=== PATIENT | female | born 1960 | race Caucasian/White ===

== ENCOUNTER 2017-11-15 23:54 | Emergency (ER) | payer OTHER ==
[2017-11-16 00:42] LABS: Absolute Lymphocytes (CBC) 3.3 K/uL (0.7-4.9); Absolute Monocytes 0.7 K/uL (0.1-1.3); Absolute Neutrophil 3.3 K/uL (1.8-8.0); Basophils % 0.9 % (0-1.3); Eosinophils % 2.5 % (0-4.4); Hematocrit 38.9 % (36.0-45.0); Lymphocytes % 43.9 % (15.3-44.8); MCH 30.1 pg (27.0-35.0); MCV 88.8 fL (80-100); MPV 8.1 fL (7.6-11.3); Monocytes % 8.8 % (3.3-12.3); RBC Red Blood Cell Count 4.38 M/uL (3.86-4.86)
[2017-11-16 01:28] LABS: CKMB Creatine Kinase MB 1.8 ng/mL (0.3-3.6); Potassium 3.9 mmol/L (3.5-5.1)
--- NOTE | 2017-11-16 02:08 | ER ---
Nurse's Notes [facility] Name: Fabiana Barron Age: 57 yrs Sex: Female : 1960 Arrival Date: 11/15/2017 Time: 23:57 Bed 4 Private MD: Ricarod Diaz Diagnosis: Chest pain, unspecified Presentation: 11/16 00:00 Presenting complaint: Patient states: that at 1700 she started to have chest pain on fc and off lasting sec's at a time. Denies any nausea, vomiting or shortness of breath. Also having left ankle swelling and low back pain. Transition of care: patient was not received from another setting of care. Onset of symptoms was November 15, 2017 at 17:00. Risk Assessment: Do you want to hurt yourself or someone else? Patient reports no desire to harm self or others. Initial Sepsis Screen: Does the patient meet any 2 criteria? No. Patient's initial sepsis screen is negative. Does the patient have a suspected source of infection? No. Patient's initial sepsis screen is negative. Care prior to arrival: None. 00:00 Method Of Arrival: Ambulatory 00:00 Acuity: KE 3 fc Triage Assessment: 00:21 General: Behavior is calm, cooperative. rv Historical: - Allergies: 00:14 Demerol; fc 00:14 PENICILLINS; fc - Home Meds: 00:14 vitamin [Active]; fc - PMHx: 00:14 Diabetes - NIDDM; Hypertension; fc - PSHx: 00:14 Knee surgery; fc - Immunization history:: Last tetanus immunization: up to date. - Social history:: Smoking status: Patient/guardian denies using tobacco. - Ebola Screening: : Patient negative for fever greater than or equal to 101.5 degrees Fahrenheit, and additional compatible Ebola Virus Disease symptoms Patient denies exposure to infectious person Patient denies travel to an Ebola-affected area in the 21 days before illness onset. - Family history:: not pertinent. - Hospitalizations: : No recent hospitalization is reported. Screenin:13 Abuse screen: Denies threats or abuse. Nutritional screening: No deficits noted. fc Tuberculosis screening: No symptoms or risk factors identified. Fall Risk None identified. Assessment: 00:20 General: Appears in no apparent distress. comfortable. Pain: Pain does not radiate. rv Pain began 1700 11/15/17. Neuro: Level of Consciousness is awake, Oriented to person, place, time, situation. Cardiovascular: Heart tones S1 S2 present Capillary refill < 3 seconds Rhythm is regular. Respiratory: Airway is patent. GI: No signs and/or symptoms were reported involving the gastrointestinal system. : No signs and/or symptoms were reported regarding the genitourinary system. EENT: No signs and/or symptoms were reported regarding the EENT system. Derm: Skin is intact. :27 Reassessment: Patient appears in no apparent distress at this time. Patient and/or rv family updated on plan of care and expected duration. Pain level reassessed. Patient is alert, oriented x 3, equal unlabored respirations, skin warm/dry/pink. patient is comfortable. vital signs are stable. :18 Reassessment: PT D/C HOME, DX WITH NONCARDIAC CP. bp Vital Signs: 00:00 BP 151 / 90; Pulse 88; Resp 18; Temp 98.4(O); Pulse Ox 98% on R/A; Weight 115.21 kg fc (R); Height 5 ft. 11 in. (180.34 cm) (R); Pain 5/10; 01:26 BP 127 / 86; Pulse 68; Resp 14; Pulse Ox 97% on R/A; rv 02:18 BP 128 / 88; Pulse 78; Resp 17; Pulse Ox 98% ; bp 00:00 Body Mass Index 35.43 (115.21 kg, 180.34 cm) fc ED Course: 11/15 23:57 Patient arrived in ED. do 23:58 Ricardo Diaz MD is Private Physician. do 11/16 00:00 Arm band placed on Patient placed in an exam room, on a stretcher. fc 00:00 Patient has correct armband on for positive identification. Placed in gown. Bed in low fc position. Call light in reach. mdm sr on. Pulse ox on. Sitter at bedside. 00:03 Toby Hernadez MD is Attending Physician. rn 00:11 Triage completed. fc 00:11 No provider procedures requiring assistance completed. EKG done, by ED staff, reviewed fc by Toby Hernadez MD. 00:21 Patient maintains SpO2 saturation greater than 95% on room air. rv 00:26 Dheeraj Driver, LATRICE is Primary Nurse. bp 00:26 Inserted saline lock: 20 gauge in right forearm, using aseptic technique. Blood bp collected. 00:43 X-ray completed. Portable x-ray completed in exam room. Patient tolerated procedure kw well. 00:45 XRAY Chest (1 view) In Process Unspecified. EDMS 02:07 Ricardo Diaz MD is Referral Physician. rn 02:19 IV discontinued. bp Administered Medications: No medications were administered Outcome: 02:07 Discharge ordered by MD. rn 02:20 Discharged to home ambulatory. bp 02:20 Condition: stable 02:20 Discharge instructions given to patient, Instructed on discharge instructions, follow up and referral plans. Demonstrated understanding of instructions, follow-up care. 02:20 Patient left the ED. bp Signatures: Dispatcher [employer] EDCA Rhoda Campbell, RN RN Toby Pandya MD MD rn Whitley, Kimberlee kw Ogletree, Danielle do Peltier, Brian, RN RN bp Rogelio Seth RN RN rv
--- NOTE | 2017-11-16 02:08 | EDPHYS ---
Physician Documentation [facility] Name: Fabiana Barron Age: 57 yrs Sex: Female : 1960 Arrival Date: 11/15/2017 Time: 23:57 Bed 4 Private MD: Ricardo Diaz ED Physician Toby Hernadez HPI: 11/16 00:43 This 57 yrs old Female presents to ER via Ambulatory with complaints of Chest rn Tightness. 00:43 The patient or guardian reports chest pain that is located primarily in the substernal rn area. Onset: today. The pain does not radiate. The chest pain is described as squeezing. Duration: The patient or guardian reports multiple episodes, that are intermittent, the episodes last approximately 1 minute(s). Severity of pain: At its worst the pain was mild in the emergency department the pain has improved. The patient has not experienced similar symptoms in the past. Reports intermittent chest tightness, began today, not assoc or worse with exertion, lasts less than 1 minute, no radiation, has had normal stress test in past, no fever/cough/sob/abd pain/vomiting/diarrhea.. Historical: - Allergies: 00:14 Demerol; fc 00:14 PENICILLINS; fc - Home Meds: 00:14 vitamin [Active]; fc - PMHx: 00:14 Diabetes - NIDDM; Hypertension; fc - PSHx: 00:14 Knee surgery; fc - Immunization history:: Last tetanus immunization: up to date. - Social history:: Smoking status: Patient/guardian denies using tobacco. - Ebola Screening: : Patient negative for fever greater than or equal to 101.5 degrees Fahrenheit, and additional compatible Ebola Virus Disease symptoms Patient denies exposure to infectious person Patient denies travel to an Ebola-affected area in the 21 days before illness onset. - Family history:: not pertinent. - Hospitalizations: : No recent hospitalization is reported. ROS: 00:43 Constitutional: Negative for fever, chills, and weight loss, Eyes: Negative for injury, rn pain, redness, and discharge, Neck: Negative for injury, pain, and swelling, Cardiovascular: Negative for palpitations, and edema, Respiratory: Negative for shortness of breath, cough, wheezing, and pleuritic chest pain, Abdomen/GI: Negative for abdominal pain, nausea, vomiting, diarrhea, and constipation, MS/Extremity: Negative for injury and deformity, Skin: Negative for injury, rash, and discoloration, Neuro: Negative for headache, weakness, numbness, tingling, and seizure. Exam: 00:43 Constitutional: This is a well developed, well nourished patient who is awake, alert, rn and in no acute distress. Head/Face: Normocephalic, atraumatic. Eyes: Pupils equal round and reactive to light, extra-ocular motions intact. Lids and lashes normal. Conjunctiva and sclera are non-icteric and not injected. Cornea within normal limits. Periorbital areas with no swelling, redness, or edema. Chest/axilla: Normal chest wall appearance and motion. Nontender with no deformity. No lesions are appreciated. Cardiovascular: Regular rate and rhythm with a normal S1 and S2. No gallops, murmurs, or rubs. Normal PMI, no JVD. No pulse deficits. Respiratory: Lungs have equal breath sounds bilaterally, clear to auscultation and percussion. No rales, rhonchi or wheezes noted. No increased work of breathing, no retractions or nasal flaring. Abdomen/GI: Soft, non-tender, with normal bowel sounds. No distension or tympany. No guarding or rebound. No evidence of tenderness throughout. MS/ Extremity: Pulses equal, no cyanosis. Neurovascular intact. Full, normal range of motion. Equal circumference. Neuro: Awake and alert, GCS 15, oriented to person, place, time, and situation. Motor strength 5/5 in all extremities. Sensory grossly intact. Vital Signs: 00:00 BP 151 / 90; Pulse 88; Resp 18; Temp 98.4(O); Pulse Ox 98% on R/A; Weight 115.21 kg fc (R); Height 5 ft. 11 in. (180.34 cm) (R); Pain 5/10; 01:26 BP 127 / 86; Pulse 68; Resp 14; Pulse Ox 97% on R/A; rv 02:18 BP 128 / 88; Pulse 78; Resp 17; Pulse Ox 98% ; bp 00:00 Body Mass Index 35.43 (115.21 kg, 180.34 cm) MDM: 00:03 Patient medically screened. rn 02:05 Differential diagnosis: acute myocardial infarction, acute pericarditis, anxiety, rn coronary artery disease chest wall pain, costochondritis, esophagitis, gastritis, gastroesophageal reflux disease (GERD), pericarditis, pleurisy, pneumothorax. Data reviewed: vital signs, nurses notes, lab test result(s), EKG, radiologic studies, plain films, and as a result, I will discharge patient. Counseling: I had a detailed discussion with the patient and/or guardian regarding: the historical points, exam findings, and any diagnostic results supporting the discharge/admit diagnosis, lab results, radiology results, the need for outpatient follow up, to return to the emergency department if symptoms worsen or persist or if there are any questions or concerns that arise at home. Response to treatment: the patient's symptoms have markedly improved after treatment, and as a result, I will discharge patient. Special discussion: Based on the patient's history, exam, and Dx evaluation, there is no indication for emergent intervention or inpatient Tx. It is understood by the patient/guardian that if the Sx's persist or worsen they need to return immediately for re-evaluation. I discussed with the patient/guardian in detail that at this point there is no indication for admission to the hospital. It is understood, however, that if the symptoms persist or worsen the patient needs to return immediately for re-evaluation. ED course: Spoke with patient, normal w/u, normal ecg, neg trop, offered observation overnight for cardiac w/u and cardiology evaluation, pt chooses to go home, states will call for appt first thing in AM, recommended immediate return if worsens. . 11/16 00:12 Order name: Basic Metabolic Panel; Complete Time: rn 11/16 00:12 Order name: CBC with Diff; Complete Time: rn 11/16 00:12 Order name: Ckmb; Complete Time: rn 11/16 00:12 Order name: CPK; Complete Time: rn 11/16 00:12 Order name: Troponin (emerg Dept Use Only); Complete Time: rn 11/16 00:12 Order name: XRAY Chest (1 view) rn 11/16 00:12 Order name: EKG; Complete Time: 00:13 rn 11/16 00:12 Order name: Cardiac monitoring; Complete Time: 00:14 rn 11/16 00:12 Order name: EKG - Nurse/Tech; Complete Time: 00:14 rn 11/16 00:12 Order name: IV Saline Lock; Complete Time: 00:27 rn 11/16 00:12 Order name: Labs collected and sent; Complete Time: 00: rn 11/16 00:12 Order name: O2 Per Protocol; Complete Time: 00:14 rn 11/16 00:12 Order name: O2 Sat Monitoring; Complete Time: 00:14 rn Administered Medications: No medications were administered Disposition: 11/16/17 02:07 Discharged to Home. Impression: Chest pain, unspecified. - Condition is Stable. - Discharge Instructions: Nonspecific Chest Pain. - Medication Reconciliation Form, Thank You Letter, Antibiotic Education, Prescription Opioid Use form. - Follow up: Ricardo Diaz MD; When: Today; Reason: Recheck today's complaints, Re-evaluation by your physician. - Problem is new. - Symptoms have improved. Signatures: Dispatcher [employer] EDMS Rhoda Campbell RN RN fc Nieto, Roman, MD MD rn Peltier, Brian, RN RN bp Corrections: (The following items were deleted from the chart) 02:20 02:07 11/16/2017 02:07 Discharged to Home. Impression: Chest pain, unspecified. bp Condition is Stable. Forms are Medication Reconciliation Form, Thank You Letter, Antibiotic Education, Prescription Opioid Use. Follow up: Ricardo Diaz; When: Today; Reason: Recheck today's complaints, Re-evaluation by your physician. Problem is new. Symptoms have improved. rn
--- NOTE | 2017-11-16 08:09 | RAD REPORT ---
EXAM DESCRIPTION: RAD - Chest Single View - 11/16/2017 12:45 am CLINICAL HISTORY: CHEST PAIN Chest pain. COMPARISON: CHEST PA AND LAT 2 VIEW dated 06/13/2015; CHEST PA AND LAT 2 VIEW dated 07/04/2007 FINDINGS: Portable technique limits examination quality. The lungs are grossly clear. The heart is normal in size. No displaced fractures. IMPRESSION: No acute intrathoracic process suspected.
--- NOTE | 2017-11-16 15:42 | EKG ---
Test Date: 2017-11-16 Test Time: 00:09:31 Dispute Resolution Analyst: KINA MEASUREMENT RESULTS: Intervals: Rate: 75 RI: 172 QRSD: 90 QT: 396 QTc: 442 Menard: P: 49 RI: 172 QRS: 10 T: 47 INTERPRETIVE STATEMENTS: Normal sinus rhythm Normal ECG No previous ECG available for comparison Electronically Signed On 11-16-17 15:41:06 CDT by Charly Mccormick
== END 2017-11-16 02:20 | disposition home or self-care (01) ==
LOC: ER 23:54
DX: R07.89 Other chest pain (principal); E11.9 Type 2 diabetes mellitus without complications; I10 Essential (primary) hypertension; Z88.6 Allergy status to analgesic agent; Z88.0 Allergy status to penicillin
CPT/HCPCS: 36415; 71045; 80048; 82550; 82553; 84484; 85025; 93005; 99285

== ENCOUNTER 2021-05-13 15:05 | Emergency (ER) | payer OTHER, SELFPAY ==
--- OUTSIDE RECORDS SUMMARY | 2021-05-13 15:07 | XMS REPORT | Continuity of Care Document ---
:1960 Author Organization [facility] t Address [address] [place] [address] Care Team Providers Name Role Phone Emily Primary Care Physician Marquez Alejandre MA Attending Clinician Unavailable Sakina ROBLES Attending Clinician Unavailable Payers Payer Name Policy Type Policy Number Effective Date Expiration Date S ource Problems Condition Condition Condition Status Onset Resolution Last Treating Co mments Source Name Details Category Date Date Treatment Clinician Date Type 2 Type 2 Disease Active 2019-05 Univers diabetes diabetes 2-10 ity of mellitus mellitus 00:00: [place] without without 00 Medical complicati complicati Br anch on, on, without without long-term long-term current current use of use of insulin insulin Family Family Disease Active 2019-05 Univers history of history of 2-10 it y of breast breast 00:00: [place] cancer cancer 00 Medical Branch Allergies, Adverse Reactions, Alerts Allergy Allergy Status Severity Reaction(s) Onset Inactive Treating Comm ents Source Name Type Date Date Clinician Farrukh Estrada Active Other - See 2019-05 S/p U nivers ne Hcl ty to comments 2-10 surgery ity of adverse 00:00: adverse [place] reaction 00 reaction Medica l s Branch Penicill Propensi Active Shortness of 2019-05 Univers ins ty to Breath 2-10 ity of adverse 00:00: [place] reaction 00 Medical s Branch Social History Social Habit Start Date Stop Date Quantity Comments Source History SDCT 2020-05-02 2020-05-02 99 University o f Alcohol Frequency 00:00:00 00:00:00 [place] M edical Branch History SDOH 2020-05-02 2020-05-02 99 University o f Alcohol Std 00:00:00 00:00:00 [place] [facility] History SDOH 2020-05-02 2020-05-02 99 University o f Alcohol Binge 00:00:00 00:00:00 [place] [facility] Tobacco use and 2020-05-02 2020-05-02 Never used Universit y of exposure 00:00:00 00:00:00 [place] [facility] Alcohol intake 2020-05-02 2020-05-02 Current drinker Unive rsity of 00:00:00 00:00:00 of alcohol [place] [facility] (finding) Branch Alcohol Comment 2020-05-02 2020-05-02 Rare Universit y of 00:00:00 00:00:00 [facility] Sex Assigned At [birth year] Universit y of 00:00:00 00:00:00 [facility] Smoking Status Start Date Stop Date Source Never smoker [facility] Branch Medications Ordered Filled Start Stop Current Ordering Indication Dosage Frequency Signature Comments Components Source Medication Medication Date Date Medication? Clinician (SIG) Name Name ascorbic 2019-05 Yes 500mg Take 500 Univ ers acid, 2-10 mg by ity of vitamin C, 10:16: mouth. [place] (VITAMIN C) 24 Medical 500 mg Branch tablet Cholecalcif 2019-05 Yes Take by Un layla pooja, 2-10 mouth. ity of Vitamin D3, 10:16: [place] (VITAMIN 24 Medical D3) 25 mcg Branch (1,000 unit) capsule MAGNESIUM 2019-05 Yes Take by Univ ers ORAL 2-10 mouth. ity of 10:16: [address] Branch vitamin E 2019- Yes Take by Univ ers acetate 2-10 mouth. ity of (VITAMIN E 10:16: [place] ORAL) 24 Medical Branch multivitami 2019- Yes 5mL Take 5 mL U nivers n solution 2-10 by mouth ity o f 10:16: daily. [place] [id number] Medical Branch B-complex 2019- Yes Take by Univ ers with 2-10 mouth. ity of vitamin C 10:16: [place] (VITAMIN B 24 Medical COMPLEX-C Branch ORAL) ascorbic 2019- Yes 500mg Take 500 Univ ers acid, 2-10 mg by ity of vitamin C, 10:16: mouth. [place] (VITAMIN C) 24 Medical 500 mg Branch tablet Cholecalcif 2019- Yes Take by Un layla pooja, 2-10 mouth. ity of Vitamin D3, 10:16: [place] (VITAMIN 24 Medical D3) 25 mcg Branch (1,000 unit) capsule MAGNESIUM 2019-05 Yes Take by [facility] ers ORAL 2-10 mouth. ity of 10:16: [place] 24 Medical Branch vitamin E 2019-05 Yes Take by [facility] ers acetate 2-10 mouth. ity of (VITAMIN E 10:16: [place] ORAL) 24 Medical Branch multivitami 2019-05 Yes 5mL Take 5 mL U nivers n solution 2-10 by mouth ity o f 10:16: daily. [place] [address] Medical Branch B-complex 2019-05 Yes Take by [facility] ers with 2-10 mouth. ity of vitamin C 10:16: [place] (VITAMIN B 24 Medical COMPLEX-C Branch ORAL) BYDUREON 2019-05 Yes INJECT Univers BCISE 2 1-10 UNDER THE ity of mg/0.85 mL 00:00: [place]IN [place]CE [place] [facility] 00 A WEEK Medical DIRECTED Branch BYDUREON 2019-05 Yes INJECT Univers BCISE 2 1-10 UNDER THE ity of mg/0.85 mL 00:00: [place]IN ONCE [place] [facility] 00 A WEEK Medical DIRECTED Branch Procedures Procedure Date / Time Performed Performing Clinician [facility] e EXTERNAL MAMMOGRAM 2019-06-06 14:00:00 Doctor Unassigned, No Uni versity of [facility] EXTERNAL MAMMOGRAM 2019-06-06 00:00:00 Doctor Unassigned, No Uni versity of [facility] EXTERNAL PAP SMEAR 2019-03-24 13:00:00 Doctor Unassigned, No Uni versity of [facility] EXTERNAL FIT DNA 2019-03-15 23:31:00 Doctor Unassigned, No Unive rsity of [facility] EXTERNAL COLONOSCOPY 2012-01-18 00:00:00 Doctor Unassigned, No U niversity of [facility] Encounters Start End Encounter Admission Attending Care Care Encounter Source Date/Time Date/Time Type Type Clinicians Facility Department ID 2021-05-13 2021-05-13 BRAULIO Vides [id number] [facility] 00:00:00 00:00:00 Management Emilia CARRANZA [id number] ity of [place] [id number] [place] [id number] Medi adam 086 Branch 2021-04-30 2021-04-30 Pre Visit BRAULIO Presley [id number] Univers 00:00:00 00:00:00 Outreach Yasmin CARRANZA [id number] i ty kevin MCKEON [id number] [place] [id number] [address] Results Test Description Test Time Test Comments Results Result Comments Source EXTERNAL FIT DNA 2019-03-23 00:00:00 Test Item Value Reference Range Interpretation Comme nts RIGO (test code = RIGO) Cologuard (see referral to GI scanned/attached)Test Result Positive?Abnormal? It is recommended that a positive Cologuard screen be clinically correlated and followed-up with a structural examination of the colon such as diagnostic colonoscopy. Colonoscopies performed for a positive Cologuard may find as the most clinically significant lesion: colorectal cancer [4.0%], advanced adenoma (including sessile serrated polyps greater than or equal to 1cm diameter) [20%] or non- advanced adenoma [31%]; or no colorectal neoplasia [45%]. These estimates are derived from a prospective cross-sectional screening study of 10,000 individuals at average risk for colorectal cancer who were screened with both Cologuard and colonoscopy. (Table 3, Curtis Castillo. et al, N Engl J Med 2014;370(14):2421-9268.) Test Type: Composite algorithmic analysis of stool DNA-biomarkers with hemoglobin immunoassay. ?Quantitative values of individual biomarkers are not reportable and are not associated with individual biomarker result reference ranges. Precautions and Limitations: Cologuard is intended for colorectal cancer screening of adults of either sex, 50 years or older, who are at typical average-risk for colorectal cancer. A negative Cologuard test result does not guarantee the absence of colorectal cancer or advanced adenoma (pre-cancer). Patients with a negative Cologuard test result should be advised to continue participating in a colorectal cancer screening program. Cologuard may produce a positive result, even though a colonoscopy may not find colorectal cancer or precancerous polyps. The performance of Cologuard has been established in a cross sectional study (i.e., single point in time). Performance has not been evaluated in adults who have been previously tested with Cologuard or in patients less than 50 years of age. Cologuard has been approved for use by the U.[place]. FDA. Cologuard performance data in a 10,000 patient pivotal study using colonoscopy as the reference method can be accessed at the following location:[email or web address]. Additional description of the Cologuard test process, warnings and precautions can be found at www.cologuardtest.com. Rx Only. Resulting Agency [employer] (CLIA #:[id number]) Specimen Collected: 03/15/19 ?6:31 PM Last Resulted: 03/23/19 ?9:10 AM Lab Interpretation (test code Abnormal = [id number]) [facility]
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
[2021-05-13 17:53] VITALS: BP 159/101; O2SAT 98
== END 2021-05-13 17:27 | disposition home or self-care (01) ==
LOC: ER 15:05
DX: S20.219A Contusion of unspecified front wall of thorax, initial encounter (principal); S60.222A Contusion of left hand, initial encounter; V49.9XXA Car occupant (driver) (passenger) injured in unspecified traffic accident, initial encounter; I10 Essential (primary) hypertension; Z88.0 Allergy status to penicillin; Z88.5 Allergy status to narcotic agent
CPT/HCPCS: 70450; 71045; 72125; 72170; 99283